=== PATIENT | female | born 1980 | race Caucasian/White ===

== ENCOUNTER 2022-06-27 10:55 | Emergency (ER) | payer OTHER, SELFPAY ==
[2022-06-27 11:08] VITALS: BP 127/87; PULSE 85; RESP 16; TEMP 37.1; O2SAT 99
--- NOTE | 2022-06-27 11:14 | ED.URI ---
HPI - URI/Sore Throat General Chief Complaint: Upper Respiratory Infection Stated Complaint: sore throat Time Seen by Provider: 06/27/22 11:14 Source: patient Mode of arrival: ambulatory Limitations: no limitations History of Present Illness HPI Narrative: 42-year-old female presents with complaint of headache, fever, fatigue, body aches chills, diarrhea starting yesterday. Symptoms improved today. Still had a fever of 100 F. reports 4-5 episodes of diarrhea stir day, none today. No abdominal pain at this time. Denies cough, congestion, sore throat. Reports that she had COVID 6 weeks ago, strep approximately 2 weeks ago. Denies chest pain and shortness of breath. All systems reviewed and negative except as noted above. Related Data Home Medications Medication Instructions Recorded Confirmed cetirizine 10 mg tablet (Zyrtec) 10 mg PO DAILY 06/27/22 06/27/22 hydroxychloroquine 200 mg tablet 200 mg PO BID 06/27/22 06/27/22 norethindrone 1 mg-ethinyl 1 tablet PO DAILY 06/27/22 06/27/22 estradiol 20 mcg (24)-iron 75 mg (4) tablet () sertraline 50 mg tablet 50 mg PO DAILY 06/27/22 06/27/22 Allergies Allergy/AdvReac Type Severity Reaction Status Date / Time No Known Allergies Allergy Verified 06/27/22 11:18 Review of Systems Review of Systems: CONSTITUTIONAL: reports fever, chills, or sweats. EYES: Denies visual changes, redness, or discharge. ENT: Denies rhinorrhea, congestion, sore throat, or otalgia. CARDIOVASCULAR: Denies chest pain, palpitations, or edema. RESPIRATORY: Denies cough or dyspnea. GASTROINTESTINAL: Denies abdominal pain, nausea, vomiting. Reports diarrhea. GENITOURINARY: Denies dysuria or hematuria. SKIN: Denies rash or itching. MUSCULOSKELETAL: Denies back pain, joint pain, or myalgia. NEUROLOGIC: reports headache. Denies numbness, or weakness. PSYCHIATRIC: Denies anxiety or depression. All other systems reviewed are negative, except as documented in HPI. PMFSH Comments At time of signature, agree with nursing past medical, surgical, social and family history. There is no relevant family history pertinent to the presenting complaint. Exam Narrative: GENERAL: This is a well-nourished, well-developed patient, in no apparent distress. HEAD: normocephalic, atraumatic. EYES: PERRL. Sclera clear/white. Vision is grossly intact. EARS: External ears normal, auditory canals clear and without drainage, TMs normal without perforation. Hearing grossly intact. NOSE: External nose normal with no obvious nasal discharge, nares without redness, no rhinorrhea. THROAT: Mucous membranes moist, posterior pharynx clear. NECK: Neck supple, non-tender without lymphadenopathy, masses or thyromegaly. CARDIOVASCULAR: Regular rate and rhythm without murmurs, gallops, or rubs. RESPIRATORY: Clear to auscultation. Breath sounds equal bilaterally. No wheezes, rales, or rhonchi. GASTROINTESTINAL: Abdomen soft, non-tender, nondistended. Bowel sounds are active. No hepato-splenomegaly, or palpable masses. No guarding. SKIN: warm, Dry, intact with no suspicious lesions or rash, good texture and turgor. NEURO: awake, alert, and oriented to person, place and time. There were no obvious focal neurologic abnormalities. EXTREMITIES: No joint tenderness, effusion, or edema noted. Course Course Level of Care: Express Care Visit Vital Signs Vital signs: Vital Signs Temperature 37.1 C 06/27/22 11:08 Pulse Rate 85 06/27/22 11:08 Respiratory Rate 16 06/27/22 11:08 Blood Pressure 127/87 06/27/22 11:08 Pulse Oximetry 99 06/27/22 11:08 Oxygen Delivery Room Air 06/27/22 11:08 Temperature 37.1 C 06/27/22 11:08 Pulse Rate 85 06/27/22 11:08 Respiratory Rate 16 06/27/22 11:08 Blood Pressure 127/87 06/27/22 11:08 Pulse Oximetry 99 06/27/22 11:08 Oxygen Delivery Room Air 06/27/22 11:08 reviewed MDM - URI/Sore Throat MDM Narrative Medical decision making narrative: [place]nn
== END 2022-06-27 11:45 | disposition home or self-care (01) ==
PROVIDERS: Emergency Provider Nurse Practitioner Family
DX: B34.9 Viral infection, unspecified (principal); M34.9 Systemic sclerosis, unspecified; F41.9 Anxiety disorder, unspecified; F32.A Depression, unspecified; Z86.16 Personal history of COVID-19
CPT/HCPCS: 87081; 87804; 87880; 99213; G0463